=== PATIENT | female | born 1960 | race Caucasian/White ===

== ENCOUNTER → 2023-03-01 | Outpatient (CLI) | payer OTHER ==
[~2023-03-01] MED LIST: Albuterol 0.083% Neb Soln 2.5 MG/3 ML UD IH ONE; CELEXA 20MG20 MG/TAB PO; CIPRO 500MG TA500 MG PO; JANUMXR100-1000 PO; PRILOSEC 20MG20 MG PO; SYNTHROID0.1 MG/TAB PO; TORADOL 10MG TA10 MG PO; TUSS PO; ZITHROMAX Z PA250 MG PO; ZYRTEC 10MG10 MG PO
== END ==
LOC: COL.CARD 10:37
DX: J44.9 Chronic obstructive pulmonary disease, unspecified (principal)